=== PATIENT | female | born 1975 | race Caucasian/White ===

== ENCOUNTER → 2018-06-28 | Outpatient (CLI) | payer OTHER, BC ==
[~2018-06-28] MED LIST: ASPI325 PO; BCP; LEVSOD50 PO; METF500 PO; OXYACE5T PO; PROM25 PO
== END | disposition home or self-care (01) ==
LOC: LAB SHORT 18:05 → LAB 18:05
DX: J02.9 Acute pharyngitis, unspecified (principal)
CPT/HCPCS: 87070